=== PATIENT | female | born 1985 | race Caucasian/White ===

== ENCOUNTER → 2017-06-10 | Outpatient (CLI) | payer OTHER ==
[~2017-06-10] MED LIST: APAP500; BACTRIM DS TAB1 EACH PO; BENADRYL25 MG PO; CRYSELLE1 EACH PO; CYCLOBENZAPRINE10 MG PO; DERMOPLAST SPRA56 ML; EFFEXOR75 MG PO; FLEXERIL PO; IBUPROFEN 600600 M1; LANOLIN56 GM; MELOXICAM7.5 MG PO; METAXALONE800 MG PO; PRENATAL COMPL1 EACH PO; PRENATAL PO; SENNA; TRAMADOL 50 MG50 MG PO; TUCKS MEDICATE1 EAC1; ZOFRAN ODT4 MG PO
== END ==
LOC: ULTRA 15:19
DX: N83.202 Unspecified ovarian cyst, left side (principal); N83.201 Unspecified ovarian cyst, right side